=== PATIENT | female | born 1980 | race Caucasian/White ===

== ENCOUNTER 2017-05-08 11:31 | Outpatient (CLI) | payer OTHER, SELFPAY ==
[2017-05-08 19:27] LABS: ALT (SGPT) 45 U/L (8-55); AST (SGOT) 24 U/L (5-34); Albumin 3.9 g/dL (3.5-5.0); Alkaline Phosphatase 105 U/L (40-150); Anion Gap 11 mmol/L (10-20); BUN (Urea Nitrogen) 14 mg/dL (7.0-18.7); Bilirubin, Total 0.4 mg/dL (0.2-1.2); Calc. Creatinine Clearance 0 mL/min (70-130); Calcium 9.1 mg/dL (7.8-10.44); Carbon Dioxide 26 mmol/L (22-29); Chloride 105 mmol/L (98-107); Estimated GFR-MDRD 86; Globulin 2.5 g/dL (2.4-3.5); Glucose 82 mg/dL (70-105); Potassium 4.2 mmol/L (3.5-5.1); Protein, Total 6.4 g/dL (6.0-8.3); Sodium 138 mmol/L (136-145)
== END 2017-05-08 11:32 | disposition home or self-care (01) ==
LOC: NAVSJIPCSP 11:31
PROVIDERS: ATTEND Internal Medicine
DX: M25.571 Pain in right ankle and joints of right foot (principal); M25.572 Pain in left ankle and joints of left foot; L30.9 Dermatitis, unspecified
CPT/HCPCS: 36415; 80053; 86618; 86812; 87086

== ENCOUNTER 2020-03-22 07:00 | Emergency (ER) | payer MEDICAID, SELFPAY ==
[2020-03-22] MEDS ORDERED: Ondansetron PF 4 MG/2 ML Vial ONE (07:22)
[2020-03-22] MEDS ORDERED: Morphine 4 MG/ML VIAL ONE (07:22)
[2020-03-22] MEDS ORDERED: Morphine 2 MG/ML SYRINGE ONE (07:22)
[2020-03-22] MEDS ORDERED: Ketorolac Tromethamine 30 MG/ML VIAL ONE (07:22)
[2020-03-22 07:48] LABS: BHCG - Serum Negative (NEGATIVE); Pregs Control Bar Appear? YES (CONTROL BAR)
--- NOTE | 2020-03-22 08:13 | CT ---
CT Stone Protocol 03/22/2020 7:19 AM HISTORY: Left flank pain. COMPARISON: 05/01/2019 Technique: Multiple contiguous axial CT images are obtained through the abdomen and pelvis without IV contrast. Coronal reformats are provided. FINDINGS: This examination is limited for the evaluation of solid organs and vascular structures due to the lac k of intravenous contrast. Lower Chest: Minimal volume loss present at the right lung base. Lung bases are otherwise clear. Abdomen: Liver: Calcified granuloma present near the dome of the liver. Gallbladder: Within normal limits for CT imaging. Pancreas: Grossly normal nonenhanced CT appearance. Spleen: Grossly normal nonenhanced CT appearance. Adrenals: Grossly normal nonenhanced CT appearance. Kidneys: A 9 mm x 7 mm calculus is seen in the region of the right UPJ which does result in mild left hydronephrosis. Few punctate nonobstructing bilateral renal calculi are seen. Ureters: No ureteral calculus is seen.. Pelvis: Urinary bladder: within normal limits. Reproductive Organs: 3.1 cm hypodense cystic appearing lesion is seen in the left adnexa also present on prior exam in 2019. Lymph Nodes: No enlarged lymph nodes. Bowel: Small amount retained fecal material seen throughout the colon. Loops of small bowel are vianca l in caliber. Appendix: Not visualized, but there are no secondary signs to suggest appendicitis. Peritoneum: No free fluid, free air, or fluid collection. Retroperitoneum: within normal limits. Vessels: Abdominal aorta is normal in caliber.. Abdominal Wall: within normal limits. Bones: No suspicious lytic or sclerotic osseous lesions are identified. IMPRESSION: 1. Partially obstructing left UPJ calculus with mild left hydronephrosis. 2. Punctate nonobstructing bilateral renal calculi. 3. Left adnexal cystic lesion measuring 3.1 cm not significantly changed in size when compared to a p rior study in 2019. This finding is similar to the prior exam and again may represent a ovarian cysts, but a follow-up nonemergent pelvic ultrasound is recommended for further evaluation.
[2020-03-22 08:22] LABS: Bilirubin Negative (Negative); Blood, Urine Large (Negative); Clarity Clear (Clear); Glucose, Urine (Dipstick) Negative (Negative); Leukocyte Negative (Negative); Nitrite Negative (Negative); Protein, Urine (Dipstick) Negative (Neg-Trace); Urobilinogen 0.2 mg/dL (Less than 2)
[2020-03-22 08:43] LABS: Bacteria/HPF Rare-Few HPF (None Seen); WBC/HPF 0-3 HPF (0-3); Yeast-Budding 1+ HPF (None Seen)
== END 2020-03-22 08:43 | disposition home or self-care (01) ==
LOC: NAV ERS 07:00
DX: N13.2 Hydronephrosis with renal and ureteral calculous obstruction (principal); E03.9 Hypothyroidism, unspecified; F31.9 Bipolar disorder, unspecified; F41.9 Anxiety disorder, unspecified; F17.210 Nicotine dependence, cigarettes, uncomplicated; Z79.899 Other long term (current) drug therapy; Z87.442 Personal history of urinary calculi
CPT/HCPCS: 74176; 81003; 81015; 84703; 94760; 96374; 96375; J1885; J2270; J2405

== ENCOUNTER 2020-04-02 18:27 | Emergency (ER) | payer MEDICAID, OTHER ==
[2020-04-02] MEDS ORDERED: Ondansetron PF 4 MG/2 ML Vial ONE (19:06)
[2020-04-02] MEDS ORDERED: Morphine 4 MG/ML VIAL ONE (19:06)
[2020-04-02 19:08] LABS: #Basophils 0.1 thou/uL (0.0-0.2); #Eosinphils 0.3 thou/uL (0.0-0.7); #Lymphocytes 3.4 thou/uL (1.20-3.40); #Monocytes 0.9 thou/uL (0.11-0.59); #Neutrophils 9.2 thou/uL (1.40-6.50); %Basophils 0.6 % (0.0-1.0); %Eosinophils 2.1 % (0.0-10.0); %Lymphocytes 24.7 % (21.0-51.0); %Monocytes 6.3 % (0.0-10.0); %Neutrophils 66.3 % (42.0-75.0); Hemoglobin 13.8 g/dL (12.0-16.0); Mean Corpuscular HGB CONC 31.7 g/dL (32.0-36.0); Mean Corpuscular Hemoglobin 29.4 pg (27.0-31.0); Mean Corpuscular Volume 92.9 fL (78.0-98.0); Mean Platelet Volume 9.2 fL (7.4-10.4); Platelet Count 334 thou/uL (130-400); RBC Distribution Width 10.8 % (11.5-14.5); Red Blood Cell (RBC) Count 4.68 mill/uL (4.20-5.40); White Blood Cell (WBC) Count 13.8 thou/uL (4.8-10.8)
[2020-04-02] MEDS ORDERED: Sodium Chloride 0.9% 1,000 ML ONE (19:17)
[2020-04-02] MEDS ORDERED: Sodium Chloride 0.9% 100 ML ONE (19:22)
[2020-04-02] MEDS ORDERED: Piperacillin/Tazobactam 3.375 GM VIAL ONE (19:22)
[2020-04-02 19:28] LABS: ALT (SGPT) 75 U/L (8-55); AST (SGOT) 28 U/L (5-34); Albumin 4.1 g/dL (3.5-5.0); Alkaline Phosphatase 116 U/L (40-110); Anion Gap 19 mmol/L (10-20); BUN (Urea Nitrogen) 14 mg/dL (7.0-18.7); Bilirubin, Total 0.2 mg/dL (0.2-1.2); Calc. Creatinine Clearance 0 mL/min (70-130); Calcium 9.1 mg/dL (7.8-10.44); Carbon Dioxide 17 mmol/L (22-29); Chloride 106 mmol/L (98-107); Estimated GFR-MDRD 67; Globulin 3.5 g/dL (2.4-3.5); Glucose 103 mg/dL (70-105); Potassium 3.8 mmol/L (3.5-5.1); Protein, Total 7.6 g/dL (6.0-8.3); Sodium 138 mmol/L (136-145)
--- NOTE | 2020-04-02 19:33 | CT ---
CT ABDOMEN AND PELVIS 04/02/20 COMPARISON: 03/22/20. HISTORY: Pain. TECHNIQUE: Axial CT imaging obtained at 5 mm intervals from lung bases through pubic symphysis without contrast. Coronal and sagittal reformatted imaging obtained. FINDINGS: The lack of contrast limits assessment of the viscera, bowel, vascular structures and for lymphadenop athy. The imaged lung bases are unremarkable. No free intraperitoneal air or fluid is seen. The liver, gallbladder, spleen, pancreas, adrenal glands, and right kidney appear unremarkable. There is no nephrolithiasis, hydronephrosis, evidence for obstructive uropathy on the right. There is a double-J ureteral stent within the left ureter with distal curl within the urinary bladder and proximal curl within the renal pelvis. There is a stone within the lower pole of the left kidney measuring approximately 6-7 mm. There is no discrete stone is seen along the course of the stent. No hydronephrosis or hydroureter is seen on the left. Limited assessment of the bowel demonstrates no evidence for inflammatory change or obstruction. The osseous structures demonstrate no acute findings. IMPRESSION: Left double-J ureteral stent. Nonobstructing stone lower pole of left kidney. This stone within the l ower pole of the left kidney represents the stone noted within the proximal ureter at the UPJ on the 03/22/20 exam. POS: ZACK
[2020-04-02 19:47] LABS: Bilirubin Negative (Negative); Blood, Urine Large (Negative); Clarity Slightly Cloudy (Clear); Glucose, Urine (Dipstick) Negative (Negative); Ketone, Urine Negative (Negative); Leukocyte Trace (Negative); Nitrite Negative (Negative); Protein, Urine (Dipstick) 100 mg/dL (Neg-Trace); Urobilinogen 0.2 mg/dL (Less than 2); pH, Urine 5.5 (5.0-9.0)
[2020-04-02 19:48] LABS: Specific Gravity, Urine 1.023 (1.002-1.036)
[2020-04-02 19:53] LABS: Bacteria/HPF Rare-Few HPF (None Seen); Calcium Oxalate Crystals 1+ HPF (None Seen); RBC/HPF Greater than 50 HPF (0-3); Squamous Epithelial 0-3 HPF (0-3); WBC/HPF 0-3 HPF (0-3)
[2020-04-02] MEDS ORDERED: Ketorolac Tromethamine 30 MG/ML VIAL ONE (19:53)
== END 2020-04-02 20:20 | disposition home or self-care (01) ==
LOC: NAV ERS 18:27
DX: N30.91 Cystitis, unspecified with hematuria (principal); F31.9 Bipolar disorder, unspecified; F41.9 Anxiety disorder, unspecified; F17.210 Nicotine dependence, cigarettes, uncomplicated; Z79.899 Other long term (current) drug therapy
CPT/HCPCS: 74176; 80053; 81003; 81015; 83605; 85025; 96365; 96375; J1885; J2270; J2405; J2543; J3490; J7050

== ENCOUNTER 2020-04-12 11:21 | Emergency (ER) | payer OTHER | END 2020-04-12 11:59 | disposition home or self-care (01) | LOC: NAV ERS 11:21 | DX: G89.18 Other acute postprocedural pain (principal); R10.9 Unspecified abdominal pain; R31.9 Hematuria, unspecified; E03.9 Hypothyroidism, unspecified; F41.9 Anxiety disorder, unspecified; F17.210 Nicotine dependence, cigarettes, uncomplicated; Z79.899 Other long term (current) drug therapy | CPT/HCPCS: 93005 ==

== ENCOUNTER 2022-03-14 16:28 | Emergency (ER) | payer MEDICAID, OTHER, SELFPAY ==
[2022-03-14 17:17] LABS: Bilirubin Negative (Negative); Blood, Urine Negative (Negative); Clarity Clear (Clear); Glucose, Urine (Dipstick) Negative (Negative); Ketone, Urine Negative (Negative); Leukocyte Negative (Negative); Nitrite Negative (Negative); Protein, Urine (Dipstick) Negative (Neg-Trace); Urobilinogen 0.2 mg/dL (Less than 2)
== END 2022-03-14 17:32 | disposition home or self-care (01) ==
LOC: NAV ERS 16:28
DX: J06.9 Acute upper respiratory infection, unspecified (principal); R30.0 Dysuria; Z20.822 Contact with and (suspected) exposure to COVID-19; Z79.899 Other long term (current) drug therapy; Z79.84 Long term (current) use of oral hypoglycemic drugs; E03.9 Hypothyroidism, unspecified; F17.210 Nicotine dependence, cigarettes, uncomplicated
CPT/HCPCS: 81003; 99283; U0003; U0005

== ENCOUNTER 2022-05-29 14:23 | Emergency (ER) | payer OTHER | END 2022-05-29 14:59 | disposition home or self-care (01) | LOC: NAV ERS 14:23 | DX: K59.00 Constipation, unspecified (principal); G44.209 Tension-type headache, unspecified, not intractable; F17.210 Nicotine dependence, cigarettes, uncomplicated | CPT/HCPCS: 99283 ==

== ENCOUNTER 2022-07-12 09:18 | Emergency (ER) | payer OTHER, SELFPAY ==
[2022-07-12] MEDS ORDERED: Ketorolac Tromethamine 30 MG/ML VIAL ONE (10:21)
[2022-07-12 10:55] LABS: Anion Gap 16 mmol/L (10-20); BUN (Urea Nitrogen) 13 mg/dL (7.0-18.7); Calc. Creatinine Clearance 0 mL/min (70-130); Calcium 9.2 mg/dL (7.8-10.44); Carbon Dioxide 28 mmol/L (22-29); Chloride 100 mmol/L (98-107); Estimated GFR 81; Glucose 115 mg/dL (70-105); Magnesium 2.3 mg/dL (1.6-2.6); Potassium 3.7 mmol/L (3.5-5.1); Sodium 140 mmol/L (136-145)
== END 2022-07-12 11:09 | disposition home or self-care (01) ==
LOC: NAV ERS 09:18
DX: M62.838 Other muscle spasm (principal); Z79.899 Other long term (current) drug therapy
CPT/HCPCS: 80048; 83735; 96372; 99283; J1885

== ENCOUNTER 2023-05-03 18:50 | Emergency (ER) | payer MEDICAID, SELFPAY ==
[2023-05-03] MEDS ORDERED: Acetaminophen 500 MG TAB ONE (19:29)
[2023-05-03] MEDS ORDERED: Lidocaine 1% (PF) 30 ML VIAL ONE (19:35)
[2023-05-03] MEDS ORDERED: Bacitracin 1 PK ONE (20:24)
== END 2023-05-03 20:27 | disposition home or self-care (01) ==
LOC: NAV ERS 18:50
DX: S61.411A Laceration without foreign body of right hand, initial encounter (principal); G43.909 Migraine, unspecified, not intractable, without status migrainosus; F17.210 Nicotine dependence, cigarettes, uncomplicated; W25.XXXA Contact with sharp glass, initial encounter
CPT/HCPCS: 12002; J2001

== ENCOUNTER 2024-04-10 12:40 | Emergency (ER) | payer OTHER ==
[2024-04-10] MEDS ORDERED: Ketorolac Tromethamine 30 MG (1 mL) VIAL ONE (13:11)
[2024-04-10] MEDS ORDERED: Ondansetron PF 4 MG/2 ML Vial ONE (13:11)
[2024-04-10] MEDS ORDERED: Sodium Chloride 0.9% 1,000 ML ONE (13:11)
[2024-04-10 13:18] LABS: #Basophils 0.1 thou/uL (0.0-0.2); #Eosinphils 0.1 thou/uL (0.0-0.7); #Lymphocytes 1.9 thou/uL (1.20-3.40); #Monocytes 0.6 thou/uL (0.11-0.59); #Neutrophils 9.3 thou/uL (1.40-6.50); %Basophils 0.6 % (0.0-1.0); %Eosinophils 1.2 % (0.0-10.0); %Neutrophils 77.2 % (42.0-75.0); Hematocrit 45.6 % (36.0-47.0); Mean Corpuscular HGB CONC 32.9 g/dL (32.0-36.0); Mean Corpuscular Hemoglobin 29.1 pg (27.0-31.0); Mean Corpuscular Volume 88.5 fl (78.0-98.0); Mean Platelet Volume 9.4 fL (7.4-10.4); Platelet Count 206 10x3/uL (130-400); RBC Distribution Width 11.4 % (11.5-14.5); Red Blood Cell (RBC) Count 5.16 mill/uL (4.20-5.40); White Blood Cell (WBC) Count 12.1 10x3/uL (4.8-10.8)
[2024-04-10 13:20] LABS: Bilirubin Negative (Negative); Blood, Urine Large (Negative); Glucose, Urine (Dipstick) Negative (Negative); Ketone, Urine Negative (Negative); Leukocyte Trace (Negative); Nitrite Negative (Negative); Protein, Urine (Dipstick) 30 mg/dL (Neg-Trace); Urobilinogen 0.2 mg/dL (Less than 2); pH, Urine 6.5 (5.0-9.0)
[2024-04-10 13:22] LABS: Clarity Hazy (Clear)
[2024-04-10 13:27] LABS: RBC/HPF Greater than 50 HPF (0-3); Squamous Epithelial 0-3 HPF (0-3); WBC/HPF 0-3 HPF (0-3)
[2024-04-10 13:32] LABS: ALT (SGPT) 22 U/L (8-55); AST (SGOT) 14 U/L (5-34); Albumin 3.9 g/dL (3.5-5.0); Alkaline Phosphatase 89 U/L (40-110); Anion Gap 15 mmol/L (10-20); BUN (Urea Nitrogen) 14 mg/dL (7.0-18.7); Bilirubin, Total 0.5 mg/dL (0.2-1.2); Calc. Creatinine Clearance 0 mL/min (70-130); Calcium 9.4 mg/dL (7.8-10.44); Carbon Dioxide 20 mmol/L (22-29); Chloride 105 mmol/L (98-107); Estimated GFR 77; Globulin 3.5 g/dL (2.4-3.5); Glucose 151 mg/dL (70-105); Potassium 3.9 mmol/L (3.5-5.1); Protein, Total 7.4 g/dL (6.0-8.3); Sodium 136 mmol/L (136-145)
== END 2024-04-10 14:27 | disposition home or self-care (01) ==
LOC: NAV ERS 12:40
DX: N20.0 Calculus of kidney (principal); F17.210 Nicotine dependence, cigarettes, uncomplicated
CPT/HCPCS: 74176; 80053; 81003; 81015; 85025; 96374; 96375; J1885; J2405; J7050

== ENCOUNTER 2024-05-29 21:25 | Emergency (ER) | payer SELFPAY ==
[2024-05-29] MEDS ORDERED: methylPREDNISolone Acetate 40 mg/ml Vial ONE (22:24)
== END 2024-05-29 22:49 | disposition home or self-care (01) ==
LOC: NAV ERS 21:25
DX: J20.8 Acute bronchitis due to other specified organisms (principal)
CPT/HCPCS: 71045; 96372; J1030

== ENCOUNTER 2024-10-11 11:59 | Emergency (ER) | payer MEDICAID, OTHER ==
[~2024-10-11 11:59] MED LIST: Iopamidol 370 76% 100 ML VIAL ONE
[2024-10-11] MEDS ORDERED: methylPREDNISolone Sod Succ/PF 125 MG/2 ML VIAL ONE (12:29)
[2024-10-11] MEDS ORDERED: Ipratropium/Albuterol 3 ML NEB ONE (12:29)
[2024-10-11 12:54] LABS: ALT (SGPT) 21 U/L (8-55); AST (SGOT) 15 U/L (5-34); Albumin 3.6 g/dL (3.5-5.0); Alkaline Phosphatase 97 U/L (40-110); Anion Gap 14 mmol/L (10-20); BUN (Urea Nitrogen) 8 mg/dL (7.0-18.7); Bilirubin, Total 0.3 mg/dL (0.2-1.2); Calc. Creatinine Clearance 0 mL/min (70-130); Calcium 8.5 mg/dL (7.8-10.44); Carbon Dioxide 20 mmol/L (22-29); Chloride 104 mmol/L (98-107); Estimated GFR 88; Globulin 3.4 g/dL (2.4-3.5); Glucose 142 mg/dL (70-105); Potassium 3.7 mmol/L (3.5-5.1); Sodium 134 mmol/L (136-145)
[2024-10-11 13:05] LABS: #Basophils 0.1 thou/uL (0.0-0.2); #Eosinophils 0.1 thou/uL (0.0-0.7); #Lymphocytes 0.8 thou/uL (1.20-3.40); #Monocytes 0.6 thou/uL (0.11-0.59); #Neutrophils 5.6 thou/uL (1.40-6.50); %Basophils 0.7 % (0.0-1.0); %Eosinophils 0.8 % (0.0-10.0); %Lymphocytes 11.5 % (21.0-51.0); %Monocytes 8.8 % (0.0-10.0); %Neutrophils 78.1 % (42.0-75.0); Hematocrit 44.1 % (36.0-47.0); Hemoglobin 14.1 g/dL (12.0-16.0); Mean Corpuscular HGB CONC 31.9 g/dL (32.0-36.0); Mean Corpuscular Hemoglobin 28.5 pg (27.0-31.0); Mean Corpuscular Volume 89.2 fl (78.0-98.0); Mean Platelet Volume 10.9 fL (7.4-10.4); Platelet Count 169 10x3/uL (130-400); RBC Distribution Width 10.8 % (11.5-14.5); Red Blood Cell (RBC) Count 4.94 mill/uL (4.20-5.40); White Blood Cell (WBC) Count 7.1 10x3/uL (4.8-10.8)
== END 2024-10-11 14:13 | disposition home or self-care (01) ==
LOC: NAV ERS 11:59
DX: J20.9 Acute bronchitis, unspecified (principal); B97.89 Other viral agents as the cause of diseases classified elsewhere; J11.1 Influenza due to unidentified influenza virus with other respiratory manifestations; R73.9 Hyperglycemia, unspecified
CPT/HCPCS: 71046; 71275; 80053; 85025; 85379; 87428; 94640; 96374; J2919; J7620; Q9967

== ENCOUNTER 2025-06-15 16:07 | Emergency (ER) | payer OTHER, SELFPAY | END 2025-06-15 16:32 | LOC: NAV ERS 16:07 | DX: S40.861A Insect bite (nonvenomous) of right upper arm, initial encounter (principal); S40.862A Insect bite (nonvenomous) of left upper arm, initial encounter; S80.861A Insect bite (nonvenomous), right lower leg, initial encounter; S80.862A Insect bite (nonvenomous), left lower leg, initial encounter; S20.96XA Insect bite (nonvenomous) of unspecified parts of thorax, initial encounter; W57.XXXA Bitten or stung by nonvenomous insect and other nonvenomous arthropods, initial encounter | CPT/HCPCS: 99282 ==

== ENCOUNTER 2025-07-26 15:18 | Emergency (ER) | payer SELFPAY | END 2025-07-26 16:55 | disposition home or self-care (01) | LOC: NAV ERS 15:18 | DX: L03.116 Cellulitis of left lower limb (principal); F17.210 Nicotine dependence, cigarettes, uncomplicated | CPT/HCPCS: 99283 ==

== ENCOUNTER 2025-08-26 09:09 | Emergency (ER) | payer SELFPAY ==
[2025-08-26 10:01] LABS: Hemoglobin 15.5 g/dL (12.0-16.0); Red Blood Cell (RBC) Count 5.05 mill/uL (4.20-5.40); White Blood Cell (WBC) Count 11.0 10x3/uL (4.8-10.8)
[2025-08-26 10:02] LABS: #Basophils 0.2 thou/uL (0.0-0.2); #Eosinophils 0.3 thou/uL (0.0-0.7); #Lymphocytes 3.1 thou/uL (1.20-3.40); #Monocytes 1.1 thou/uL (0.11-0.59); #Neutrophils 6.4 thou/uL (1.40-6.50); %Basophils 1.9 % (0.0-1.0); %Eosinophils 2.5 % (0.0-10.0); %Lymphocytes 28.1 % (21.0-51.0); %Monocytes 9.8 % (0.0-10.0); %Neutrophils 57.8 % (42.0-75.0); Hematocrit 44.0 % (36.0-47.0); Manual Diff?? NO; Mean Corpuscular Hemoglobin 30.8 pg (27.0-31.0); Mean Corpuscular Volume 87.2 fl (78.0-98.0); Platelet Count 234 10x3/uL (130-400)
[2025-08-26 10:17] LABS: ALT (SGPT) 19 U/L (Less than 34); AST (SGOT) 16 U/L (11-34); Albumin 4.0 g/dL (3.1-4.5); Alkaline Phosphatase 87 U/L (40-110); Anion Gap 15 mmol/L (10-20); BUN (Urea Nitrogen) 18 mg/dL (7.0-18.7); Bilirubin, Total 0.4 mg/dL (0.3-1.2); Calc. Creatinine Clearance 0 mL/min (70-130); Calcium 9.3 mg/dL (7.8-10.44); Carbon Dioxide 22 mmol/L (22-29); Chloride 105 mmol/L (98-107); Globulin 3.0 g/dL (2.4-3.5); Glucose 106 mg/dL (70-105); Potassium 3.7 mmol/L (3.5-5.1); Sodium 138 mmol/L (136-145)
[2025-08-26 10:20] LABS: Glucose, Urine (Dipstick) Negative (Negative); Leukocyte Negative (Negative); Protein, Urine (Dipstick) Negative (Neg-Trace); Specific Gravity, Urine 1.025 (1.005-1.030)
[2025-08-26 10:28] LABS: Cocaine Metabolite Screen Negative (Negative); THC/Cannabinoid Screen Negative (Negative); Tricyclic Screen Negative (Negative)
[2025-08-26 10:33] LABS: RBC/HPF 0-3 HPF (0-3)
== END 2025-08-26 11:05 | disposition home or self-care (01) ==
LOC: NAV ERS 09:09
DX: S80.212A Abrasion, left knee, initial encounter (principal); S70.312A Abrasion, left thigh, initial encounter; L29.9 Pruritus, unspecified; F17.210 Nicotine dependence, cigarettes, uncomplicated; X58.XXXA Exposure to other specified factors, initial encounter
CPT/HCPCS: 36415; 80053; 80306; 81001; 85025; 99283